=== PATIENT | female | born 1970 | race Caucasian/White ===

== ENCOUNTER 2017-11-27 19:57 | Emergency (ER) | payer SELFPAY ==
[~2017-11-27] VITALS: Ht 162.6 cm; Wt 89.8 kg
[2017-11-27 20:03] VITALS: Ht 162.6 cm; Wt 89.8 kg
[2017-11-27 21:26] VITALS: BP 169/108
== END 2017-11-27 21:26 | disposition home or self-care (01) ==
LOC: ED 19:57
DX: S63.501A Unspecified sprain of right wrist, initial encounter (principal); M25.562 Pain in left knee; I10 Essential (primary) hypertension; W19.XXXA Unspecified fall, initial encounter; Y93.89 Activity, other specified; Y92.89 Other specified places as the place of occurrence of the external cause; Y99.8 Other external cause status
CPT/HCPCS: Q0092